=== PATIENT | female | born 1995 | race Hispanic/Latino ===

== ENCOUNTER 2022-05-26 05:37 | Emergency (ER) | payer SELFPAY ==
[2022-05-26] MEDS ORDERED: Dexamethasone 10 MG/ML VIAL ONE (06:00)
[2022-05-26 06:32] LABS: Bilirubin Neg (Negative); Blood, Urine Negative (Negative); Clarity Cloudy (Clear); Glucose, Urine (Dipstick) Normal (Negative); Ketone, Urine Negative (Negative); Leukocyte 25 (Negative); Nitrite Negative (Negative); Protein, Urine (Dipstick) Negative (Neg-Trace); Specific Gravity, Urine 1.015 (1.005-1.030); Urobilinogen Normal mg/dL (Less than 2)
[2022-05-26 06:35] LABS: Pregnancy Test - Urine (BHCG) Negative (Negative)
[2022-05-26 06:36] LABS: Pregu Control Background? CLEAR/WHITE (CLR/WHITE); Pregu Control Bar Appear? YES (CONTROL BAR); Specific Gravity 1.015 (1.002-1.036)
[2022-05-26] MEDS ORDERED: Labetalol HCl 100 MG/20 ML VIAL ONE (07:30)
[2022-05-26 07:40] LABS: Bacteria/HPF 1+ HPF (None Seen); RBC/HPF 0-3 HPF (0-3); WBC/HPF 0-3 HPF (0-3)
== END 2022-05-26 07:49 | disposition home or self-care (01) ==
LOC: CSHERS 05:37
DX: B34.9 Viral infection, unspecified (principal); N39.0 Urinary tract infection, site not specified
CPT/HCPCS: 71045; 81003; 81015; 81025; 87086; J1100

== ENCOUNTER 2025-01-22 17:34 | Emergency (ER) | payer SELFPAY ==
[2025-01-22 18:41] LABS: #Basophils 0.03 10x3/uL (0.0-0.2); #Eosinophils 0.16 10x3/uL (0.0-0.5); #Monocytes 0.48 10x3/uL (0.0-1.1); #Neutrophils 3.79 10x3/uL (1.5-8.4); %Basophils 0.5 % (0.0-2.0); %Eosinophils 2.7 % (0.0-6.0); %Lymphocytes 23.6 % (18.0-47.0); %Monocytes 8.2 % (0.0-10.0); %Neutrophils 65.0 % (40.0-75.0); Hematocrit 36.7 % (34.9-44.5); Hemoglobin 12.2 g/dL (12.0-15.5); Mean Corpuscular Hemoglobin 27.9 pg (27.0-33.0); Mean Corpuscular Volume 83.8 fL (81.6-98.3); Platelet Count 328 10x3/uL (150-450); Red Blood Cell (RBC) Count 4.38 10x6/uL (3.90-5.03); White Blood Cell (WBC) Count 5.84 10x3/uL (3.5-10.5)
[2025-01-22 18:46] LABS: Glucose, Urine (Dipstick) Normal (Negative); Leukocyte 100 (Negative); Protein, Urine (Dipstick) 30 mg/dl (Neg-Trace); Specific Gravity, Urine 1.025 (1.005-1.030)
[2025-01-22 19:02] LABS: Bacteria/HPF 1+ HPF (None Seen); CAUTI Indications for Culture Dysuria,urgency,freq; WBC/HPF 0-3 HPF (0-3)
[2025-01-22 19:03] LABS: Urine Culture Reflex No No
[2025-01-22] MEDS ORDERED: Acetaminophen 500 MG TAB ONE (19:13)
[2025-01-22 19:31] LABS: BHCG - Serum Negative (NEGATIVE); Pregs Control Background? CLEAR/WHITE (CLR/WHITE); Pregs Control Bar Appear? YES (CONTROL BAR)
[2025-01-22 19:35] LABS: ALT (SGPT) 16 U/L (Less than 34); AST (SGOT) 15 U/L (11-34); Albumin 4.3 g/dL (3.1-4.5); Alkaline Phosphatase 66 U/L (40-110); Anion Gap 12 mmol/L (10-20); BUN (Urea Nitrogen) 10 mg/dL (7.0-18.7); Bilirubin, Total 0.3 mg/dL (0.3-1.2); Calc. Creatinine Clearance 0 mL/min (70-130); Calcium 8.9 mg/dL (7.8-10.44); Carbon Dioxide 22 mmol/L (22-29); Chloride 110 mmol/L (98-107); Globulin 3.9 g/dL (2.4-3.5); Glucose 98 mg/dL (70-105); Lipase 45 U/L (8-78); Potassium 3.9 mmol/L (3.5-5.1); Sodium 140 mmol/L (136-145)
[2025-01-22] MEDS ORDERED: Ketorolac Tromethamine 30 MG (1 mL) VIAL ONE (19:39)
[2025-01-22] MEDS ORDERED: metroNIDAZOLE 500 MG TAB ONE (19:39)
[2025-01-23 08:00] LABS: Chlamydia by PCR, Vaginal Swab Not Detected (NotDetected); GC by PCR, Vaginal Swab Not Detected (NotDetected)
== END 2025-01-22 19:55 | disposition home or self-care (01) ==
LOC: CSHERS 17:34
DX: N39.0 Urinary tract infection, site not specified (principal); N76.0 Acute vaginitis; B96.89 Other specified bacterial agents as the cause of diseases classified elsewhere
CPT/HCPCS: 80053; 81001; 83605; 83690; 84703; 85025; 87480; 87491; 87510; 87591; 87660; 96374; J1885